=== PATIENT | male | born 1950 | race Caucasian/White ===

== ENCOUNTER 2016-05-25 15:44 | Emergency (ER) | payer MEDICARE, BC ==
[~2016-05-25] VITALS: Ht 160 cm; Wt 79.5 kg
[2016-05-25 15:47] VITALS: BP 144/74; PULSE 78; RESP 18; TEMP 97.7; O2SAT 97
[2016-05-25] MEDS ORDERED: IBUP800T23 PO (18:02)
[2016-05-25] MEDS ORDERED: PRED-503 PO (18:02)
--- NOTE | 2016-05-25 18:03 | PD ---
HPI Chief Complaint: Back/ Neck Pain or Injury Time Seen by Provider: 18:01 Travel History International Travel<30 days: No Contact w/Intl Traveler<30days: No Traveled to known affect area: No History of Present Illness HPI 66-year-old male presents to the emergency department requesting an MRI of his back. He has a prescription from his primary care provider to get an MRI done outpatient. He thought he was supposed to come to the emergency room to have it done. He is experiencing right-sided sciatica for one week. Exacerbated his pain 2 days ago after sneezing. Denies medical injury. Denies encopresis, incontinence, saddle anesthesias. Denies fever, chills, nausea, vomiting, abdominal pain. Denies IV drug use. Denies cancer. Pain radiates down the back of his right leg. Pain is aggravated with walking and movement. Pain is decreased in certain positions. He has received injections from his primary care providers with no relief of symptoms. He does not know the name of the medications he received. He has prescription for muscle relaxer because he doesn't want to take it. No known allergies. No other modifying factors or associated signs and symptoms. PFSH Past Medical History Cardiovascular Problems: Yes (CABG) Social History Tobacco Use: No Allergies-Medications (Allergen,Severity, Reaction): Coded Allergies: No Known Allergies (Unverified , 05/25/16) Reported Meds & Prescriptions Reported Meds & Active Scripts Active Deltasone (Prednisone) 20 Mg Tab 40 Mg PO DAILY 4 Days start 05/26/2016 Ibuprofen 800 Mg Tab 800 Mg PO Q6HR PRN Review of Systems Except as stated in HPI: all other systems reviewed are Neg Physical Exam Narrative GENERAL: Well-nourished, well-developed male patient, in no acute distress; afebrile, nontoxic-appearing SKIN: Warm and dry. HEAD: Atraumatic. Normocephalic. EYES: Pupils equal and round. No scleral icterus. No injection or drainage. ENT: Mucosa pink and moist. Airway patent. NECK: Trachea midline. CARDIOVASCULAR: Regular rate. RESPIRATORY: No accessory muscle use. GASTROINTESTINAL: Flat. MUSCULOSKELETAL: Bilateral lower extremities supple and non-tense with 2+ pedal pulses and sensory intact; with full range of motion and 5/5 strength. Active dorsiflexion and extension of bilateral feet. Ambulatory with right- sided limp. Sitting up in bed at 90. No obvious deformities. No clubbing. No cyanosis. No edema. BACK: No midline point tenderness on palpation of the lumbar spine. Tenderness on palpation of right iliosacral area. No obvious deformities. NEUROLOGICAL: Awake and alert. Oriented 3. No obvious cranial nerve deficits. Motor grossly within normal limits. Normal speech. Moves all extremities. 5/5 strength to all extremities. Sensory intact. PSYCHIATRIC: Appropriate mood and affect; insight and judgment normal. Data Data Last Documented VS Vital Signs Date Time Temp Pulse Resp B/P Pulse Ox O2 Delivery O2 Flow Rate FiO2 05/25/16 15:47 97.7 78 18 144/74 97 Room Air Orders Ibuprofen (Motrin) (05/25/16 18:15) Prednisone (Deltasone) (05/25/16 18:15) MDM Medical Decision Making Medical Screen Exam Complete: Yes Emergency Medical Condition: Yes Medical Record Reviewed: Yes Differential Diagnosis Sciatica, lumbar radiculopathy, acute low back pain, low back strain Narrative Course 66-year-old male requesting an MRI of back that is prescribed by his primary care provider. Physical exam and history of present illness is consistent with right-sided low back pain and sciatica. Patient says he's miserable and cannot take the pain anymore. He said he like to try prescription strength ibuprofen. Does not want to take a muscle relaxer. I discussed oral steroids and he said he would like to try them. Denies encopresis, incontinence, saddle anesthesias. Denies IV drug use. Denies cancer. Denies fever, chills, nausea , vomiting. No midline point tenderness on palpation of the lumbar spine. Ibuprofen and Deltasone administered in the ER. Ibuprofen and Deltasone prescribed for home. Instructed patient to follow up outpatient for MRI as prescribed. Patient verbalizes understanding and agreement with treatment plan. Patient is medically cleared and stable for discharge. Discussed reasons to return to the emergency department. Instructed patient to follow up with primary care provider. Patient agrees with treatment plan. The patients vital signs are stable and the patient is stable for outpatient follow-up and treatment. Patient discharged home, stable and in no acute distress. Diagnosis Primary Impression: Low back pain with right-sided sciatica Qualified Code: M54.41 - Right-sided low back pain with right-sided sciatica, unspecified chronicity Referrals: Primary Care Physician Patient Instructions: Acute Low Back Pain (ED), General Instructions, Sciatica (ED) Departure Forms: Tests/Procedures, Work Release Enter return to work date: May 28, 2016 Additional Instructions: Tylenol or ibuprofen as directed and as needed for pain Heating pad and/or ice to affected area to reduce pain Avoid aggravating activities; increase activity as tolerated Follow-up with primary care provider Return to emergency department immediately with worsening of symptoms Med/Other Pt SpecificInfo: Prescription(s) given Scripts Prednisone (Deltasone)20 Mg Tab40 Mg PO DAILY 4 Days Ref 0 start 05/26/2016 Prov:Jerrica Layton 05/25/16 Ibuprofen 800 Mg [id number] Mg PO Q6HR PRN (PAIN) #30 TAB Ref 0 Prov:Jerrica Layton 05/25/16 Disposition: 01 DISCHARGE HOME Condition: Stable Jerrica Layton May 25, 2016 18:03
[2016-05-25] MEDS ORDERED: predniSONE 20 MG TAB PO ONE (18:15)
[2016-05-25] MEDS ORDERED: IBUPROFEN 800 MG TAB PO ONE (18:15)
== END 2016-05-25 18:28 | disposition home or self-care (01) ==
LOC: NEPK 15:44
DX: M54.41 Lumbago with sciatica, right side (principal)
CPT/HCPCS: 99283; J7512